=== PATIENT | male | born 1975 | race Caucasian/White ===

== ENCOUNTER 2016-07-02 15:41 | Emergency (ER) | payer OTHER ==
[~2016-07-02 15:41] MED LIST: BENAZEPRIL HCL10 MG PO; FLEXERIL10 M1 PO; MOTRIN600 M1 PO; PREDNISONE10 MG/DOSE PO
[2016-07-02] MEDS ORDERED: NO MEDICATIONS (15:42)
== END 2016-07-02 16:38 | disposition home or self-care (01) ==
LOC: SED 15:41
DX: M54.16 Radiculopathy, lumbar region (principal); Z98.890 Other specified postprocedural states
CPT/HCPCS: 96372; 99283; J1885